=== PATIENT | male | born 1965 | race Two or more races ===

== ENCOUNTER 2023-09-10 23:48 | Emergency (ER) | payer OTHER ==
[~2023-09-10] VITALS: Ht 172.7 cm; Wt 93.8 kg
[2023-09-11 00:13] VITALS: BP 175/80; PULSE 72; RESP 16; TEMP 98.2; O2SAT 95
[2023-09-11] MEDS: TETANUS-DIPTH-ACEL PERTUSSIS 0.5ML SYR Tdap IM ONE (03:27)
[2023-09-11] MEDS ORDERED: DOXY100C4 PO (04:17)
== END 2023-09-11 04:29 | disposition home or self-care (01) ==
LOC: ER 23:48
DX: S90.32XA Contusion of left foot, initial encounter (principal); E11.9 Type 2 diabetes mellitus without complications; I10 Essential (primary) hypertension; Z23 Encounter for immunization; W22.8XXA Striking against or struck by other objects, initial encounter; Y93.89 Activity, other specified; Y92.69 Other specified industrial and construction area as the place of occurrence of the external cause; Y99.8 Other external cause status
CPT/HCPCS: 73630; 90471; 90715

== ENCOUNTER 2024-02-03 18:26 | Emergency (ER) | payer BC, OTHER ==
[~2024-02-03] VITALS: Ht 172.7 cm; Wt 95.0 kg
[~2024-02-03 18:26] MED LIST: DOXY100C4 PO
[2024-02-03 20:54] VITALS: BP 147/75; PULSE 91; RESP 18; O2SAT 94
[2024-02-03] MEDS: IBUPROFEN 800 MG TAB PO ONE (21:00)
[2024-02-03] MEDS: ACETAMINOPHEN 325 MG TAB PO ONE (21:01)
--- NOTE | 2024-02-03 21:52 | DVH ---
CHEST RADIOGRAPH Indication: cough Technique: Frontal and lateral view of the chest was obtained Comparison: None FINDINGS: Lines and Tubes: None Lungs: Clear Pleura: No effusion. No pneumothorax. Cardiomediastinal contours: Unremarkable Bones: Unremarkable IMPRESSION: 1. No evidence of acute disease.
[2024-02-03 21:58] VITALS: TEMP 100
[2024-02-03] MEDS ORDERED: PROM1SOL4 PO (22:09)
[2024-02-03] MEDS ORDERED: AZIT-43 PO (22:09)
--- NOTE | 2024-02-03 22:09 | ED.PDOC ---
SOB-HPI HPI Comments This is a 58-year-old male patient presents to the ED flu-like symptoms x2 days. Reports productive cough yellowish thick mucus, fevers, nausea, vomiting, and diarrhea also notes body aches. It is no recent travel or ill contacts. Chest pain difficulty breathing or shortness of breath. Chief Complaint: Flu like Time Seen by MD: 18:34 Reviewed notes: Nurses Notes, Medications, Allergies Information Source: Patient Mode of Arrival: Ambulatory Past Medical History PAST MEDICAL HISTORY: DM, HTN Surgical History: Denies all surgeries Family History Family History: Reviewed,noncontributory to illness Social History Smoker: Non-Smoker Alcohol: Denies ETOH Use Drugs: Denies Drug Use Constitutional: reports: chills, fatigue, fever; denies: diaphoresis, malaise, sweats, weakness, others EENTM: reports: nasal discharge, throat pain; denies: blurred vision, double vision, ear bleeding, ear discharge, ear drainage, ear pain, ear ringing, eye pain, eye redness, hearing loss, mouth pain, mouth swelling, nose bleeding, nose congestion, nose pain, photophobia, tearing, throat swelling, voice changes, others Respiratory: reports: cough Cardiovascular: denies: chest pain, dizzy spells, diaphoresis, Dyspnea on exertion, edema, irregular heart beat, left arm pain, lightheadedness, palpitations, PND, syncope, others Gastrointestinal: reports: diarrhea, nausea, vomiting; denies: abdomen distended, abdominal pain, blood streaked bowels, constipated, dysphagia, difficulty swallowing, hematemesis, melena, poor appetite, poor fluid intake, rectal bleeding, rectal pain, others Genitourinary: denies: burning, dysuria, flank pain, frequency, hematuria, incontinence, penile discharge, penile sore, pain, testicle pain, testicle swelling, urgency, others Neurological: denies: dizziness, fainting, headache, left sided numbness, left sided weakness, numbness, paresthesia, pre-existing deficit, right sided numbness, right sided weakness, seizure, speech problems, tingling, tremors, weakness, others Musculoskeletal: denies: back pain, gout, joint pain, joint swelling, muscle pain, muscle stiffness, neck pain, others Integumetry: denies: bruises, change in color, change in hair/nails, dryness, laceration, lesions, lumps, rash, wounds, others Allergic/Immunocompromised: denies: Difficulty Healing, Frequent Infections, Hives, Itching, others Hematologic/Lymphatic: denies: anemia, blood clots, easy bleeding, easy bruising, swollen glands, others Endocrine: denies: excessive hunger, excessive sweating, excessive thirst, excessive urination, flushing, intolerance to cold, intolerance to heat, unexplained weight gain, unexplained weight loss, others Psychiatric: denies: anxiety, bipolar disorder, depression, hopeless, panic disorder, schizophrenia, sleepless, suicidal, others Physical Exam General Appearance: No Apparent Distress, Normal HEENT: Pharyngeal Erythema Neck: Full Range of Motion, Non-Tender Respiratory: Lungs Clear, No Respiratory Distress, Normal Breath Sounds Cardiovascular: No Edema, No JVD, No Murmur, No Gallop, Normal Peripheral Pulses, Regular Rate/Rhythm Breast Exam: Deferred Gastrointestinal: No Organomegaly, Non Tender, No Pulsatile Mass, Normal Bowel Sounds, Soft Genitalia: Deferred Pelvic: Deferred Rectal: Deferred Extremities: Normal capillary refill, Normal inspection, Normal range of motion, Non-tender, No pedal edema Musculoskeletal : Apperance: Normal Neurologic: Alert, 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 Was a procedure done?: No Differential Dx Differential Diagnosis: Bronchitis, Pneumonia X-Ray, Labs, Meds, VS Vital Signs Date Time Temp Pulse Resp B/P (MAP) Pulse Ox O2 Delivery O2 Flow Rate FiO2 02/03/24 21:58 100.0 02/03/24 21:58 100.0 02/03/24 21:01 102.0 02/03/24 21:00 102.0 02/03/24 20:54 91 18 94 Room Air 02/03/24 20:54 102.0 91 18 147/75 (99) 94 102.0 02/03/24 18:53 101.4 90 20 145/85 (105) 96 Current Medications Medications (Trade) Dose Ordered Sig/Chelsea Route Start Time Stop Time Status Last Admin Acetaminophen (Tylenol Tablet) 650 mg ONCE ONCE PO 02/03/24 21:00 02/03/24 21:01 DC 02/03/24 21:01 Ibuprofen (Motrin Tablet) 800 mg ONCE ONCE PO 02/03/24 21:00 02/03/24 21:01 DC 02/03/24 21:00 X-Ray, Labs, Meds, VS Comment Chest x-ray shows no cardiopulmonary acute concerns. Grabbing hold azithromycin start trial of promethazine cough medicine. Advised to rest increase p.o. fluids with electrolytes follow up with your PCP in 2-3 days as necessary [id number] Tylenol or Motrin as needed for fever per labeled dosing instructions patient indicated understanding agrees with discharge plan of care. Time of 1ST Reevaluation: 22:06 Reevaluation 1ST: Improved Patient Education/Counseling: Diagnosis, Treatment, Prognosis, Need For Follow Up Family Education/Counseling: Diagnosis, Treatment, Prognosis, Need For Follow Up Departure 1 Departure Time of Disposition: 22:06 Impression: Primary Impression: Upper respiratory infection Qualified Codes: J06.9 - Acute upper respiratory infection, unspecified Disposition: HOME / SELF CARE / HOMELESS Condition: Stable e-Prescriptions Promethazine-Dm (Promethazine Dm 6.25-15 mg/5Ml) 1 Emmie Emmie 5 ML PO QID PRN for 3 Days, #60 ML Prov: WINTER MUNROE 02/03/24 Azithromycin (Azithromycin) 250 Mg Tab 250 MG PO DAILY MDD 500 for 5 Days, #6 TAB 0 Refills 2 TABLETS ORALLY ON DAY ONE, THEN 1 TABLET ORALLY DAILY FOR 4 DAYS Prov: WINTER MUNROE 02/03/24 Discharged With: Spouse Critical Care Note Critical Care Time?: No Stability Stability form required: No Heart Score Heart Score: Heart Score Response (Comments) Value History N/A 0 EKG N/A 0 Age 45-64 1 Risk Factors N/A 0 Troponin N/A 0 Total 1 WINTER MUNROE Feb 03, 2024 22:09
== END 2024-02-03 22:15 | disposition home or self-care (01) ==
LOC: ER 18:31
DX: J06.9 Acute upper respiratory infection, unspecified (principal); E11.9 Type 2 diabetes mellitus without complications; I10 Essential (primary) hypertension
CPT/HCPCS: 71046

== ENCOUNTER 2024-07-08 17:27 | Inpatient (IN) | payer BC ==
[~2024-07-08] VITALS: Ht 172.7 cm; Wt 97.5 kg
[~2024-07-08 17:27] MED LIST changes: +AZIT-43 PO
[2024-07-08 19:04] LABS: Basophils # (auto) 0.1 10 ^3/uL (0-0.2); Basophils % (auto) 0.9 % (0.0-2.0); Eosinophils # (auto) 0.2 10 ^3/uL (0-0.8); Eosinophils % (auto) 1.6 % (0.0-7.0); Hematocrit 40.5 % (41.0-53.0); Hemoglobin 14.1 g/dL (13.5-17.5); Lymphocytes # (auto) 4.3 10 ^3/uL (0.4-5.4); Lymphocytes % (auto) 44.4 % (10.0-50.0); Mean Corpuscular Hemoglobin 31.3 pg (28.0-32.0); Mean Corpuscular Hgb Conc. 34.8 g/dL (32.0-36.0); Mean Corpuscular Volume 90.2 fL (80.0-100.0); Monocytes # (auto) 0.8 10 ^3/uL (0-1.3); Neutrophils # (auto) 4.4 10 ^3/uL (1.6-8.6); Neutrophils % (auto) 45.1 % (37.0-80.0); Nucleated Red Blood Cells % 0.1 %; Platelet Count (auto) 250 10^3/uL (140-450); Red Blood Cells 4.49 10^6/uL (4.5-5.90); White Blood Cell 9.7 10^3/uL (4.4-10.8)
[2024-07-08 19:10] LABS: Chloride 106 mmol/L (98-107); Potassium 4.7 mmol/L (3.5-5.1); Sodium 139 mmol/L (136-145)
--- NOTE | 2024-07-08 19:10 | ED.PDOC ---
Musculoskeletal HPI Comments 59 year old male came to ER due to left foot pain. Patient has history of diabetes. [place] the [place] and he was unable to feel how hot the surface is because of his diabetes/ neuropathy. Noted redness, swelling and erythema at his left foot. 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/24 Doxycycline Hyclate (Doxycycline Hyclate) 100 Mg Cap, 100 MG PO BID for 5 Days, #10 CAP Prov:WINTER MUNROE POULTRY SERVICE TECHNICIAN 09/11/23 Information Source: Patient Mode of Arrival: Ambulatory Location: Left Extremity Location: Foot Timing: Days Severity: Moderate Able to Move Extremity: Yes Bear Weight: Limited Pain: Moderate Hand Dominance: Right Mechanism: Spontaneous Circumstances: Spontaneous Onset of Symptoms: Spontaneous Symptoms: Swelling, Erythema, Warmth Associated signs and symptoms: Other (left foot redness/ swelling) Past Medical History PAST MEDICAL HISTORY: DM, HTN Surgical History: Denies all surgeries Family History Family History: Reviewed,noncontributory to illness Social History Smoker: Non-Smoker Alcohol: Denies ETOH Use Drugs: Denies Drug Use Lives In: Home Constitutional: denies: chills, diaphoresis, fatigue, fever, malaise, sweats, weakness, others EENTM: denies: blurred vision, double vision, ear bleeding, ear discharge, ear drainage, ear pain, ear ringing, eye pain, eye redness, hearing loss, mouth pain, mouth swelling, nasal discharge, nose bleeding, nose congestion, nose pain, photophobia, tearing, throat pain, throat swelling, voice changes, others Respiratory: denies: cough, hemoptysis, orthopnea, SOB at rest, shortness of breath, SOB with excertion, stridor, wheezing, others Cardiovascular: denies: chest pain, dizzy spells, diaphoresis, Dyspnea on exertion, edema, irregular heart beat, left arm pain, lightheadedness, palpitations, PND, syncope, others Gastrointestinal: denies: abdomen distended, abdominal pain, blood streaked bowels, constipated, diarrhea, dysphagia, difficulty swallowing, hematemesis, melena, nausea, poor appetite, poor fluid intake, rectal bleeding, rectal pain, vomiting, others Genitourinary: denies: burning, dysuria, flank pain, frequency, hematuria, incontinence, penile discharge, penile sore, pain, testicle pain, testicle swelling, urgency, others Neurological: denies: dizziness, fainting, headache, left sided numbness, left sided weakness, numbness, paresthesia, pre-existing deficit, right sided numbness, right sided weakness, seizure, speech problems, tingling, tremors, weakness, others Musculoskeletal: reports: others (left foot redness); denies: back pain, gout, joint pain, joint swelling, muscle pain, muscle stiffness, neck pain Integumetry: denies: bruises, change in color, change in hair/nails, dryness, laceration, lesions, lumps, rash, wounds, others Allergic/Immunocompromised: denies: Difficulty Healing, Frequent Infections, Hives, Itching, others Hematologic/Lymphatic: denies: anemia, blood clots, easy bleeding, easy bruisi ng, swollen glands, others Endocrine: denies: excessive hunger, excessive sweating, excessive thirst, exce ssive urination, flushing, intolerance to cold, intolerance to heat, unexplained weight gain, unexplained weight loss, others Psychiatric: denies: anxiety, bipolar disorder, depression, hopeless, panic disorder, schizophrenia, sleepless, suicidal, others Physical Exam General Appearance: No Apparent Distress, Normal HEENT: Normal ENT Inspection, Pharynx Normal, TMs Normal Neck: Full Range of Motion, Non-Tender, Normal, Normal Inspection Respiratory: Chest Non-Tender, Lungs Clear, No Accessory Muscle Use, No Respi ratory Distress, Normal Breath Sounds Cardiovascular: No Edema, No JVD, No Murmur, No Gallop, Normal Peripheral Pulses, Regular Rate/Rhythm Breast Exam: Deferred Gastrointestinal: No Organomegaly, Non Tender, No Pulsatile Mass, Normal Bowel Sounds, Soft Genitalia: Deferred Pelvic: Deferred Rectal: Deferred Extremities: No calf tenderness, Normal capillary refill, Normal range of motion, Non-tender, No pedal edema, Swelling (left foot redness, swelling, erythema) Musculoskeletal : Apperance: Normal Neurologic: Alert, 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 Was a procedure done?: No Differential Diagnosis EXT Differential Diagnosis: Cellulitis, Other (diabetes) X-Ray, Labs, Meds, VS Vital Signs Date Time Temp Pulse Resp B/P (MAP) Pulse Ox O2 Delivery O2 Flow Rate FiO2 07/08/24 18:00 99.0 71 13 162/89 (113) 97 99.0 Lab Test 07/08/24 19:40 07/08/24 18:48 07/08/24 18:25 Range/Units Troponin I High Sensitivity 7 6 </=54 ng/L White Blood Count 9.7 4.4-10.8 10^3/uL Red Blood Count 4.49 L 4.5-5.90 10^6/uL Hemoglobin 14.1 13.5-17.5 g/dL Hematocrit 40.5 L 41.0-53.0 % Mean Corpuscular Volume 90.2 80.0-100.0 fL Mean Corpuscular Hemoglobin 31.3 28.0-32.0 pg Mean Corpuscular Hemoglobin Concent 34.8 32.0-36.0 g/dL Red Cell Distribution Width 14.0 11.8-14.3 % Platelet Count 250 140-450 10^3/uL Mean Platelet Volume 7.8 6.9-10.8 fL Neutrophils (%) (Auto) 45.1 37.0-80.0 % Lymphocytes (%) (Auto) 44.4 10.0-50.0 % Monocytes (%) (Auto) 8.0 0.0-12.0 % Eosinophils (%) (Auto) 1.6 0.0-7.0 % Basophils (%) (Auto) 0.9 0.0-2.0 % Neutrophils # (Auto) 4.4 1.6-8.6 10 ^3/uL Lymphocytes # (Auto) 4.3 0.4-5.4 10 ^3/uL Monocytes # (Auto) 0.8 0-1.3 10 ^3/uL Eosinophils # (Auto) 0.2 0-0.8 10 ^3/uL Basophils # (Auto) 0.1 0-0.2 10 ^3/uL Nucleated Red Blood Cells 0.1 % Sodium Level 139 136-145 mmol/L Potassium Level 4.7 3.5-5.1 mmol/L Chloride Level 106 98-107 mmol/L Carbon Dioxide Level 29 20-31 mmol/L Anion Gap 4 L 5-15 Blood Urea Nitrogen 22 9-23 mg/dL Creatinine 1.27 0.700-1.30 mg/dL Glomerular Filtration Rate Calc 65 >90 mL/min BUN/Creatinine Ratio 17.3 10.0-20.0 Serum Glucose 301 H 74-106 mg/dL Lactic Acid Level 1.1 0.4-2.0 mmol/L Calcium Level 9.5 8.7-10.4 mg/dL B-Type Natriuretic Peptide 142.32 0-100 pg/mL POC Glucose 301 H 70-106 mg/dl PROCEDURE(s): LFOOT - L FOOT 3 VIEW XRAY REASON: left foot ulcer on bottom of the foot ORDER NUMBER(s): [id number], ACCESSION NUMBER(s): [id number] CLINICAL INDICATION: left foot ulcer on bottom of the foot TECHNIQUE: radiographic views of the left foot were obtained. Comparison: XY L FOOT 3 VIEW XRAY on DOS: 09/11/23 FINDINGS/IMPRESSION: There is no evidence of acute fracture or dislocation. If osteomyelitis is of clinical concern recommend MRI. The visualized joint space is well maintained. The alignment is anatomical. There is no radiopaque foreign body. CHEST RADIOGRAPH Indication: weakness Technique: Single frontal view of the chest was obtained Comparison: 02/03/2024 FINDINGS: Lines and Tubes: None Lungs: No focal consolidation. Pleura: No effusion. No pneumothorax. Cardiomediastinal contours: Unremarkable Bones: No acute osseous abnormality. IMPRESSION: 1. No acute cardiopulmonary disease. 2. No significant change from 02/03/2024 Time of 1ST Reevaluation: 19:06 Reevaluation 1ST: Unchanged Patient Education/Counseling: Diagnosis, Treatment Family Education/Counseling: No Family Present Sepsis Sepsis Reasesment Focused Exam Orders: Laboratory Tests 07/08/24 18:48: Lactic Acid Level 1.1 Departure 1 Departure Time of Disposition: 20:49 (Patient presents with cellulitis of the left lower extremity. Given patient's high morbidity mortality arrest due to his risk factors we will admit patient for further workup and expert consultation. We will empirically cover patient with antibiotics and fluids. We will not give patient a full sepsis fluid boluses patient is clinically volume overloaded.) Impression: Primary Impression: Cellulitis of left foot Additional Impressions: Foot ulcer, left Qualified Codes: L97.521 - Non-pressure chronic ulcer of other part of left foot limited to breakdown of skin Diabetes Qualified Codes: E11.610 - Type 2 diabetes mellitus with diabetic neuropathic arthropathy Disposition: ADMITTED INPATIENT Admit to: Med Surg Condition: Guarded Critical Care Note Critical Care Time?: Yes Critical care comment: Concern for sepsis Authorized and Performed by: Bree Sesay MD Total critical care time: Approximately 34 minutes Due to a high probability of clinically significant, life threatening deterioration, the patient required my highest level of preparedness to intervene emergently and I personally spent this critical care time directly and personally managing the patient. This critical care time included obtaining a history; examining the patient; pulse oximetry; ordering and review of studies; arranging urgent treatment with development of a management plan; evaluation of patient's response to treatment; frequent reassessment; and, discussions with other providers. This critical care time was performed to assess and manage the high probability of imminent, life-threatening deterioration that could result in multi-organ failure. It was exclusive of separately billable procedures and treating other patients and teaching time. Please see my other sections and the rest of the note for further information on patient assessment and treatment. Stability Stability form required: No Heart Score Heart Score: Heart Score Response (Comments) Value History N/A 0 EKG N/A 0 Age N/A 0 Risk Factors N/A 0 Troponin N/A 0 Total 0 I personally scribed for BREE SESAY MD ([email or web address]) on 07/08/24 at 19:10. Electronically submitted by Luigi Sosa ([email or web address]). I personally scribed for BREE SESAY MD ([email or web address]) on 07/08/24 at 19:57. Electronically submitted by Luigi Sosa ([email or web address]). BREE SESAY MD July 08, 2024 19:10
[2024-07-08 19:11] LABS: Anion Gap 4 (5-15); Carbon Dioxide 29 mmol/L (20-31)
[2024-07-08 19:12] LABS: Calcium 9.5 mg/dL (8.7-10.4)
[2024-07-08 19:16] LABS: Glucose 301 mg/dL (74-106)
--- NOTE | 2024-07-08 19:16 | DVH ---
CLINICAL INDICATION: left foot ulcer on bottom of the foot TECHNIQUE: radiographic views of the left foot were obtained. Comparison: XY L FOOT 3 VIEW XRAY on DOS: 09/11/23 FINDINGS/IMPRESSION: There is no evidence of acute fracture or dislocation. If osteomyelitis is of clinical concern recommend MRI. The visualized joint space is well maintained. The alignment is anatomical. There is no radiopaque foreign body.
[2024-07-08 19:17] LABS: BUN/Creatinine Ratio 17.3 (10.0-20.0); Blood Urea Nitrogen 22 mg/dL (9-23)
[2024-07-08] MEDS: SODIUM CHLORIDE 0.9% 1,000 ML IV ONE (21:30)
[2024-07-08] MEDS: VANCOMYCIN 1GM/200ML PM 200 ML IV ONE (21:30)
[2024-07-08] MEDS ORDERED: ONDANSETRON HCL 4 MG/2 ML VIAL IV PRN (21:45)
[2024-07-08] MEDS ORDERED: DEXTROSE (50%) 50ML SYRG IV PRN (21:45)
[2024-07-08] MEDS ORDERED: HYDROcodone-ACET 5/325MG TAB PO PRN (21:45)
[2024-07-08] MEDS ORDERED: VANCOMYCIN PER PHARMACY 0 MG IV SCH (21:45)
[2024-07-08] MEDS ORDERED: DOCUSATE SOD 100 MG CAP PO PRN (21:45)
[2024-07-08] MEDS ORDERED: ACETAMINOPHEN 325 MG TAB PO PRN (21:45)
[2024-07-08] MEDS: SODIUM CHLORIDE 0.9% 1,000 ML IV SCH (22:21)
[2024-07-08] MEDS: ASCORBIC ACID 500 MG TAB PO SCH (22:21)
--- NOTE | 2024-07-08 22:52 | DVHHP2 ---
History of Present Illness Reason for Visit: Cellulitis of left foot History of Present Illness The patient is a 59-year-old male with past medical history of hypertension and diabetes mellitus who presented to [facility] ED with complaint of left foot pain. Patient reports he was walking barefooted at the beach last week and was unable to feel the hot surface due to diabetic neuropathy, sustained wound on the bottom of his left foot. Patient was seen and evaluated in the ED, laboratory data shows WBC 9.7, platelets 250, sodium 139, potassium 4.7, BUN 22, creatinine 1.27, troponin 7, glucose 301, BNP 142.32, blood pressure 136/79, heart rate 65, temperature 97.7 F, O2 saturation 97% on room air. Patient was started on IV antibiotic regimen vancomycin, please see medication orders section in the computer. On my assessment, patient denied chest pain, no headache, no shortness a breath, no diaphoresis, no nausea, no vomiting, no fever, no chills. Patient was admitted for further evaluation and medical management. Past Medical History DM, HTN, Neuropathy Past Surgical History Denies all surgeries Family History Reviewed, noncontributory to the management of this case. Past Social History The patient lives at home, denies smoking, alcohol or illicit drugs abuse. Review of Systems Constitutional: No: Fever, Chills, Sweats, Weakness, Malaise, Other Eyes: No: Pain, Vision change, Conjunctivae inflammation, Eyelid inflammation, Other, Redness ENT: No: Ear pain, Ear discharge, Nose pain, Nose discharge, Nose congestion, Mouth pain, Mouth swelling, Throat pain, Throat swelling, Other Respiratory: No: Cough, Dry, Shortness of breath, SOB with excertion, Wheezing, Hemoptysis, Pleuritic Pain, Sputum, Wheezing, Other Cardiovascular: No: Chest Pain, Palpitations, Orthopnea, Paroxysmal Noc. Dyspnea, Edema, Lt Headedness, Other Gastrointestinal: No: Nausea, Vomiting, Abdominal Pain, Diarrhea, Constipation, Melena, Hematochezia, Other Genitourinary: No Dysuria, No Frequency, No Incontinence, No Hematuria, No Retention, No Other Musculoskeletal: other (left foot redness); No: neck pain, shoulder pain, arm pain, back pain, hand pain, leg pain, foot pain Skin: Other (Left foot ulcer); No: Rash, Lesions, Jaundice, Bruising Neurological: No: Weakness, Numbness, Incoordination, Change in speech, Confusion, Seizures, Other Allergies: Coded Allergies: NO KNOWN ALLERGIES (Unverified , 09/11/23) Medications Current Medications Medications Dose Ordered Sig/Chelsea Route Start Time Stop Time Status Last Admin Dose Admin Amlodipine Besylate 5 mg DAILY PO 07/09/24 10:00 Hydralazine HCl 10 mg Q6HP PRN IV 07/08/24 21:45 Vancomycin HCl 0 ml @ 0 mls/hr UD IV 07/08/24 21:45 UNV Diagnostic Test (Pha) 1 strip IQ4HR 07/09/24 00:00 Insulin Human Regular IQ4HR SC 07/09/24 00:00 Dextrose 50 ml UD PRN IV 07/08/24 21:45 Sodium Chloride 1,000 ml @ 60 mls/hr [id number] IV 07/08/24 21:45 07/08/24 22:21 60 MLS/HR Acetaminophen/ Hydrocodone Bitart 1 tab Q4HP PRN PO 07/08/24 21:45 Ondansetron HCl 4 mg Q4HP PRN IV 07/08/24 21:45 Docusate Sodium 100 mg BIDPRN PRN PO 07/08/24 21:45 Zinc Sulfate 220 mg DAILY PO 07/09/24 10:00 Ascorbic Acid 500 mg BID PO 07/08/24 22:00 07/08/24 22:21 500 MG Acetaminophen 650 mg Q6HP PRN PO 07/08/24 21:45 Exam Vital Signs Vital Signs Date Time Temp Pulse Resp B/P (MAP) Pulse Ox O2 Delivery O2 Flow Rate FiO2 07/08/24 21:38 Room Air* 0 21 07/08/24 21:05 97.7 65 15 136/79 (98) 94 97.7 General Appearance: Alert, Oriented X3, Cooperative, No acute distress HEENT: Atraumatic, PERRLA, EOMI, Mucous membr. moist/pink Respiratory: Clear to auscultation, Normal air movement Cardiovascular: Regular rate, Normal S1, Normal S2, No murmurs Abdominal: Normal bowel sounds, Soft, No tenderness, No hepatospenomegaly, No masses Extremities: No clubbing, No cyanosis, No edema, Normal pulses, Other (Left foot swelling) Skin: No rashes, No significant lesion Neuro: Normal speech, Normal tone, Sensation intact, Cranial nerves 3-12 NL, Reflexes 2+ Psych/Mental Status: Mental status NL, Mood NL Labs/Xrays Labs Test 07/08/24 19:40 07/08/24 18:48 07/08/24 18:25 Range/Units Troponin I High Sensitivity 7 </=54 ng/L White Blood Count 9.7 4.4-10.8 10^3/uL Red Blood Count 4.49 L 4.5-5.90 10^6/uL Hemoglobin 14.1 13.5-17.5 g/dL Hematocrit 40.5 L 41.0-53.0 % Mean Corpuscular Volume 90.2 80.0-100.0 fL Mean Corpuscular Hemoglobin 31.3 28.0-32.0 pg Mean Corpuscular Hemoglobin Concent 34.8 32.0-36.0 g/dL Red Cell Distribution Width 14.0 11.8-14.3 % Platelet Count 250 140-450 10^3/uL Mean Platelet Volume 7.8 6.9-10.8 fL Neutrophils (%) (Auto) 45.1 37.0-80.0 % Lymphocytes (%) (Auto) 44.4 10.0-50.0 % Monocytes (%) (Auto) 8.0 0.0-12.0 % Eosinophils (%) (Auto) 1.6 0.0-7.0 % Basophils (%) (Auto) 0.9 0.0-2.0 % Neutrophils # (Auto) 4.4 1.6-8.6 10 ^3/uL Lymphocytes # (Auto) 4.3 0.4-5.4 10 ^3/uL Monocytes # (Auto) 0.8 0-1.3 10 ^3/uL Eosinophils # (Auto) 0.2 0-0.8 10 ^3/uL Basophils # (Auto) 0.1 0-0.2 10 ^3/uL Nucleated Red Blood Cells 0.1 % Sodium Level 139 136-145 mmol/L Potassium Level 4.7 3.5-5.1 mmol/L Chloride Level 106 98-107 mmol/L Carbon Dioxide Level 29 20-31 mmol/L Anion Gap 4 L 5-15 Blood Urea Nitrogen 22 9-23 mg/dL Creatinine 1.27 0.700-1.30 mg/dL Glomerular Filtration Rate Calc 65 >90 mL/min BUN/Creatinine Ratio 17.3 10.0-20.0 Serum Glucose 301 H 74-106 mg/dL Lactic Acid Level 1.1 0.4-2.0 mmol/L Calcium Level 9.5 8.7-10.4 mg/dL B-Type Natriuretic Peptide 142.32 0-100 pg/mL POC Glucose 301 H 70-106 mg/dl PATIENT: VLAD VILLARREAL ACCT: [id number] UNIT: [id number] : 1965 LOC: ER ROOM / BED: / AGE / SEX: 59 / M ADM STATUS: REG ER SERVICE [id number] ORDERING PHYSICIAN: BREE ESTRADA MD PROCEDURE(s): LFOOT - L FOOT 3 VIEW XRAY REASON: left foot ulcer on bottom of the foot ORDER NUMBER(s): [id number], ACCESSION NUMBER(s): [id number] CLINICAL INDICATION: left foot ulcer on bottom of the foot TECHNIQUE: radiographic views of the left foot were obtained. Comparison: XY L FOOT 3 VIEW XRAY on DOS: 09/11/23 FINDINGS/IMPRESSION: There is no evidence of acute fracture or dislocation. If osteomyelitis is of clinical concern recommend MRI. The visualized joint space is well maintained. The alignment is anatomical. There is no radiopaque foreign body. ORDERING PHYSICIAN: BREE ESTRADA MD PROCEDURE(s): CXRP - CHEST PORTABLE REASON: weakness ORDER NUMBER(s): [id number], ACCESSION NUMBER(s): [id number] CHEST RADIOGRAPH Indication: weakness Technique: Single frontal view of the chest was obtained Comparison: 02/03/2024 FINDINGS: Lines and Tubes: None Lungs: No focal consolidation. Pleura: No effusion. No pneumothorax. Cardiomediastinal contours: Unremarkable Bones: No acute osseous abnormality. IMPRESSION: 1. No acute cardiopulmonary disease. 2. No significant change from 02/03/2024 Assessment/Plan Assessment/Plan Cellulitis of left foot Foot ulcer, left Non-pressure chronic ulcer of other part of left foot limited to breakdown of skin Type 2 diabetes mellitus with diabetic neuropathic arthropathy Plan 1. Admit to med session 80 2. Breathing treatment 3. Pain control management 4. IV antibiotic management 5. Management of fluids and electrolytes 6. Consultation for hospitalist/wound care 7. Diagnostic test left foot x-ray 8. DVT prophylaxis-on aspirin 9. Repeat labs CBC, CMP in a.m. 10. Home medication reviewed and reconciled 11. Continue with current medical management 12. Treatment plan discussed with patient and RN. Patient verbalized understanding. Plan discussed with: Patient, Other (RN) My Orders Orders - UMER THOMPSON DNP Procedure Category Date Status Time Amlodipine Tablet PHA 07/09/24 In Process (Norvasc Tablet) 10:00 Hydralazine Injection PHA 07/08/24 In Process (Apresoline Inject 21:45 Vancomycin Per PHA 07/08/24 Pending Pharmacy 21:45 * Wound Consult CONS 07/08/24 Transmitted Consistent DIET 07/09/24 Transmitted Carb(Ccho)Diabetes Breakfast Glucose Blood PHA 07/09/24 In Process (Accu-Chek Comfort 00:00 Insulin R (Human) PHA 07/09/24 In Process (Insulin R) 00:00 Dextrose 50% Syringe PHA 07/08/24 In Process 21:45 Allergies LILIANA 07/08/24 In Process 21:43 Code Status CODE 07/08/24 Transmitted 21:43 Sodium Chloride 0.9% PHA 07/08/24 In Process 21:45 Oxygen Per Hour RT 07/08/24 Transmitted 21:43 Hydrocodone-Acet PHA 07/08/24 In Process /325mg Tab (Haigler 21:45 Ondansetron Hcl PHA 07/08/24 In Process (Zofran) 21:45 Docusate Sodium PHA 07/08/24 In Process Capsule (Colace 21:45 Zinc Sulfate PHA 07/09/24 In Process 10:00 Ascorbic Acid Tablet PHA 07/08/24 In Process (Vitamin C Tablet) 22:00 Complete Blood Count LAB 07/09/24 Verified 04:00 Comprehensive LAB 07/09/24 Verified Metabolic Panel 04:00 Condition: Serious LILIANA 07/08/24 In Process 21:43 Acetaminophen Tablet PHA 07/08/24 In Process (Tylenol Tablet) 21:45 Bedrest With Bathroom LILIANA 07/08/24 In Process Privileg 21:43 Sequential LILIANA 07/08/24 In Process Compression Device Admit ADMIT 07/08/24 Verified 22:50 Nitroglycerin PHA 07/08/24 Verified Sublingual (Ntrostat 23:00 Morphine Sulfate PHA 07/08/24 Verified Injection 23:00 Notify Of Changes LILIANA 07/08/24 Verified From Base 22:50 Emergency Dysrhythmia LILIANA 07/08/24 Verified Protocol 22:50 Oxygen By Nasal RT 07/08/24 Verified Cannula 22:50 Problem List: (1) Cellulitis of left foot (2) Foot ulcer, left (3) Non-pressure chronic ulcer of other part of left foot limited to breakdown of skin (4) Type 2 diabetes mellitus with diabetic neuropathic arthropathy Date of Service: July 08, 2024 Billing Provider: UMER THOMPSON DNP Common Visit Codes: 49597-[id number] INP/OBS CARE (HIGH) UMER THOMPSON DNP July 08, 2024 22:52
[2024-07-08 22:54] VITALS: PULSE 71; RESP 12; O2SAT 95
[2024-07-08] MEDS ORDERED: NITROGLYCERIN 0.4 MG SL TAB SL PRN (23:00)
[2024-07-08] MEDS ORDERED: MORPHINE SULFATE INJ 2 MG/ml SYRG IV PRN (23:00)
[2024-07-08] MEDS: ACCU-CHEK COMFORT CURVE STRIP VI SCH (23:34)
[2024-07-08 23:51] VITALS: BP 171/94; PULSE 70; RESP 18; TEMP 98; O2SAT 98
[2024-07-08 23:58] VITALS: BP 171/94; PULSE 70; RESP 18; TEMP 98; O2SAT 98
[2024-07-09] MEDS: InsuLIN REG 1unit/0.01ml Soln (100units/ml) SC SCH
[2024-07-09] MEDS: hydrALAZINE HCL 20 MG/ML VL IV PRN (00:07)
[2024-07-09] MEDS: MELATONIN 5 MG TAB PO SCH (01:09)
[2024-07-09 05:00] VITALS: BP 126/69; PULSE 65; RESP 18; TEMP 97.9; O2SAT 97
[2024-07-09 06:30] LABS: Basophils # (auto) 0.1 10 ^3/uL (0-0.2); Basophils % (auto) 0.7 % (0.0-2.0); Eosinophils # (auto) 0.2 10 ^3/uL (0-0.8); Eosinophils % (auto) 1.8 % (0.0-7.0); Hemoglobin 13.1 g/dL (13.5-17.5); Lymphocytes # (auto) 3.9 10 ^3/uL (0.4-5.4); Lymphocytes % (auto) 39.9 % (10.0-50.0); Mean Corpuscular Hemoglobin 30.9 pg (28.0-32.0); Mean Corpuscular Hgb Conc. 34.5 g/dL (32.0-36.0); Mean Corpuscular Volume 89.5 fL (80.0-100.0); Monocytes % (auto) 10.1 % (0.0-12.0); Neutrophils # (auto) 4.6 10 ^3/uL (1.6-8.6); Neutrophils % (auto) 47.5 % (37.0-80.0); Platelet Count (auto) 238 10^3/uL (140-450); Red Blood Cells 4.24 10^6/uL (4.5-5.90); Red Cell Distribution Width 13.9 % (11.8-14.3); White Blood Cell 9.7 10^3/uL (4.4-10.8)
[2024-07-09 06:47] LABS: Alanine Aminotransferase 11 U/L (7-40); Alkaline Phosphatase 69 U/L (46-116); Anion Gap 6 (5-15); BUN/Creatinine Ratio 18.8 (10.0-20.0); Blood Urea Nitrogen 18 mg/dL (9-23); Carbon Dioxide 26 mmol/L (20-31); Potassium 3.7 mmol/L (3.5-5.1); Sodium 141 mmol/L (136-145)
[2024-07-09 06:48] LABS: Aspartate Aminotransferase 13 U/L (13-40); Chloride 109 mmol/L (98-107); Glucose 141 mg/dL (74-106); Total Protein 5.9 g/dL (5.7-8.2)
[2024-07-09 06:49] LABS: Albumin 3.5 g/dL (3.2-4.8)
[2024-07-09 06:50] LABS: Bilirubin, Total 0.5 mg/dL (0.2-1.0)
[2024-07-09 08:30] VITALS: PULSE 65; RESP 16; O2SAT 97
[2024-07-09] MEDS: ZINC SULFATE 220mg CAP or TAB PO SCH (08:38)
[2024-07-09] MEDS: ASPirin 81 mg TAB PO SCH (08:38)
[2024-07-09] MEDS: amLODIPine BESYLATE 5 MG TAB PO SCH (08:39)
[2024-07-09 09:00] VITALS: BP 155/95; PULSE 65; RESP 16; TEMP 97.9; O2SAT 97
[2024-07-09] MEDS: FUROSEMIDE 20 MG/2 ML VIAL IV ONE (12:15)
[2024-07-09 13:00] VITALS: BP 136/66; PULSE 61; RESP 16; TEMP 98.5; O2SAT 96
--- NOTE | 2024-07-09 13:08 | DVHPNRES ---
Progress Note Date Seen: Jul 09, 2024 Resident Creating Document: BRIONNA DE LA CRUZ RESIDENT Has the PT tested + for MRSA If YES, has PT been informed?: No Medical Necessity Reason Pt with a Central, PICC or Fol: No Medical Necessity Reason History of Present Illness The patient is a 59-year-old male with past medical history of hypertension and diabetes mellitus who presented to [facility] ED with complaint of left foot pain. Patient reports he was walking [place]footed [place] the [place] and was unable to feel the hot surface due to diabetic neuropathy, sustained wound on the bottom of his left foot. Patient was seen and evaluated in the ED, laboratory data shows WBC 9.7, platelets 250, sodium 139, potassium 4.7, BUN 22, creatinine 1.27, troponin 7, glucose 301, BNP 142.32, blood pressure 136/79, heart rate 65, temperature 97.7 F, O2 saturation 97% on room air. Patient was started on IV antibiotic regimen vancomycin, please see medication orders section in the computer. On my assessment, patient denied chest pain, no headache, no shortness a breath, no diaphoresis, no nausea, no vomiting, no fever, no chills. Patient was admitted for further evaluation and medical management. Past Medical History: DM, HTN, Neuropathy Past Surgical History: Denies all surgeries Family History: Reviewed, noncontributory to the management of this case. Past Social History :The patient lives at home, denies smoking, alcohol or illicit drugs abuse. 07/09 Patient is a 59-year-old male with a known past medical history of diabetes and hypertension but noncompliant presented to the ED because of left foot pain. According to the patient he has been diagnosed of diabetes some time back has been on metformin and glipizide and also lisinopril for hypertension. However, patient has not be compliant with these medications. For unknown reasons. According to the patient, for about a week now he was walking on the beach without shoes and did not feel any cuts or lesion under his foot. He has neuropathy and he did not know. He just noticed ulcer at the bottom of his left foot and presented to the ED for evaluation. Patient denied any fever, chills, tenderness. Initial lab work in the ED revealed WBC 9.7, platelet 250, Na: 137. Left foot x-ray revealed is no evidence of acute fracture or dislocation. will get an MRI Subjective Review of Systems Constitutional: Denies fever no chills no feeling of malaise HEENT: Denies headache, ear pain, ear discharges, conjunctivitis, nasal discharge throat pain Cardiovascular: Denies chest pain, palpitation, orthopnea, PND, or pedal edema Respiratory: Denies shortness of breath, cough cough, sputum production, hemoptysis, GI: Denies abdominal pain, nausea, vomiting, diarrhea, hematemesis, hematochezia, : Denies frequency, urgency, hematuria, Endocrine: Denies unintentional weight gain or weight loss, feeling of hot flashes, Russell: Denies easy bruising, bleeding disorders, epistaxis Musculoskeletal: Denies joint pains, muscle aches Psych: No evidence of depression, jatinder, suicidal ideation Objective vital signs Vital Sign Date Time Temp Pulse Resp B/P (MAP) Pulse Ox O2 Delivery O2 Flow Rate FiO2 07/09/24 12:15 138/82 07/09/24 09:00 97.9 65 16 97 97.9 07/09/24 08:30 Room Air* 0 21 Total Intake and Output 07/08/24 07/08/24 07/09/24 15:00 23:00 07:00 Intake Total 1200 ml 235 ml Balance 1200 ml 235 ml medications Current Medications Medications Dose Ordered Sig/Chelsea Route Start Time Stop Time Status Last Admin Dose Admin Amlodipine Besylate 5 mg DAILY PO 07/09/24 10:00 07/09/24 08:39 5 MG Hydralazine HCl 10 mg Q6HP PRN IV 07/08/24 21:45 07/09/24 00:07 10 MG Vancomycin HCl 0 ml @ 0 mls/hr UD IV 07/08/24 21:45 Diagnostic Test (Pha) 1 strip IQ4HR 07/09/24 00:00 07/09/24 12:03 1 STRIP Insulin Human Regular IQ4HR SC 07/09/24 00:00 07/09/24 12:14 6 UNITS Dextrose 50 ml UD PRN IV 07/08/24 21:45 Sodium Chloride 1,000 ml @ 60 mls/hr [id number] IV 07/08/24 21:45 07/08/24 22:21 60 MLS/HR Acetaminophen/ Hydrocodone Bitart 1 tab Q4HP PRN PO 07/08/24 21:45 Ondansetron HCl 4 mg Q4HP PRN IV 07/08/24 21:45 Docusate Sodium 100 mg BIDPRN PRN PO 07/08/24 21:45 Zinc Sulfate 220 mg DAILY PO 07/09/24 10:00 07/09/24 08:38 220 MG Ascorbic Acid 500 mg BID PO 07/08/24 22:00 07/09/24 08:38 500 MG Acetaminophen 650 mg Q6HP PRN PO 07/08/24 21:45 Nitroglycerin 0.4 mg Q5MINP PRN SL 07/08/24 23:00 Morphine Sulfate 2 mg Q30M PRN IV 07/08/24 23:00 Melatonin 5 mg HS PO 07/09/24 00:50 07/09/24 01:09 5 MG Aspirin 81 mg DAILY PO 07/09/24 10:00 07/09/24 08:38 81 MG Vancomycin HCl 300 ml @ 200 mls/hr Q24H IV 07/09/24 15:00 Examination General Appearance: Alert, Oriented X3, Cooperative, No acute distress HEENT: Atraumatic, PERRLA, EOMI, Mucous membrane moist/pink Respiratory: Clear to auscultation, Normal air movement Cardiovascular: Regular rate, Normal S1, Normal S2, No murmurs, no chest wall tenderness Abdominal: NO distention, no tenderness, bowel sounds present, no scars noted Extremities: No clubbing, No cyanosis, No edema, Normal pulses, No tenderness/swelling Skin: No rashes, left foot plantar ulcer; unstageable with black eschar Neuro: Normal gait, Normal speech, Strength at 5/5 X4 ext, Normal tone, Sensation intact, Cranial nerves 3-12 NL, Reflexes 2+ Psych/Mental Status: Mental status NL, Mood NL laboratory and microbiology Laboratory Tests 07/09/24 05:46 Test 07/09/24 05:46 Range/Units Serum Glucose 141 #H 74-106 mg/dL Labs and/or images reviewed: Labs reviewed by me, Image(s) reviewed by me Problem List/Assessment/Plan Problem List/Assessment/Plan Assessment Diabetic foot ulcer, rule out osteomyelitis Diabetes mellitus type 2 Type 2 diabetes mellitus with diabetic neuropathic arthropathy Hypertension Obesity grade 1, BMI 32.4 plan Vancomycin and Ceftriaxone Get MRI to rule out osteomyelitis Continue insulin and sliding scale Continue home medication of lisinopril; not adhering to medication Check A1c Lipid panel Consulted Podiatry Consulted wound care Counseled the patient on adherence to medical treatment Counseled the patient importance of adopting healthy lifestyle with diet and exercise in order to lose weight DVT prophylaxis; Lovenox Diet: Diabetic Goal of care discussed for 20 minutes with the patient and his : Full code Case and plan discussed with Dr. Borrero Plan discussed with: Patient, Spouse, Other (Nurse) My Orders My Orders Orders - BRIONNA DE LA CRUZ Procedure Category Date Status Time Echo 2d Mode Cardiac US 07/09/24 Logged DOP 11:35 Dietary Evaluation Review Recommendations by RD: Dietary education by RD, Protein Supplementation Comments: 1) Renal restriction is not necessary d/t patient's labs WNL. Change to 60g CCHO 2g Na diet. 1) Initiate Ronnell @ 1 pk bid 2) Initiate MVI @ 1 tb qd 3) Collect HbA1c d/t elevated POC Glucose - 298 mg/dL 4) Refer to outpatient RD/CDCES for diabetes education and weight management 5) Continue to monitor I&O, labs, and skin integrity Expected Outcomes/Goals: 1) appetite and labs to improve 2) wound to improve 3) f/u in 3-5 days Addendum Addendum Addendum I was physically present for the caballero portions of the service provided to patient by THE RESIDENT. I have reviewed the documentation, discussed the case with resident and agree with the resident's documentation except as noted. Also the patient's clinical case was discussed with the patient's nurse. This medical document was created using an electronic medical record system with computerized dictation system. Although this document has been carefully reviewed, there might still be some phonetic and typographical errors. These areas are purely typographical due to imperfections of the software programs, and do not reflect any compromise in the patient's medical care. Late signature. Date of Service: Jul 09, 2024 Billing Provider: JACOBO BORRERO MD Common Visit Codes: [id number] INP/OBS CARE(HIGH) Secondary Visit Codes: [id number] CARE PLAN 30 MINUTES (20 minutes) BRIONNA DE LA CRUZ Jul 09, 2024 13:08 JACOBO BORRERO MD Jul 10, 2024 05:53
[2024-07-09 13:17] LABS: Triglycerides 136 mg/dL (< 150)
[2024-07-09 13:21] LABS: Cholesterol 217 mg/dL (< 200); HDL Cholesterol 34 mg/dL (40-59); LDL Cholesterol 168 mg/dL (< 100)
[2024-07-09] MEDS: VANCOMYCIN 1.5GM/300ML 300 ML IV SCH (15:45)
--- NOTE | 2024-07-09 16:27 | DVH ---
CLINICAL HISTORY: 59 years old, Male; RULE OUT OSTEOMYELITIS. Ulcer of the left foot. TECHNIQUE: Multi sequence multi planar MRI images of the left foot were obtained without IV contrast . COMPARISON: Radiographs dated 07/08/2024. FINDINGS: There is a wound at the plantar aspect of the forefoot near the level of the 2nd MTP joint . There is adjacent subcutaneous edema, possible cellulitis in the appropriate clinical setting. No o rganized fluid collection identified to suggest abscess. No evidence for osteomyelitis. Is also Moder ate subcutaneous edema along the dorsal aspect of the foot, which is nonspecific, but may be seen wit h cellulitis in the appropriate clinical setting. Visualized tendons appear intact. Mild tenosynovit is of the flexor hallucis longus tendon along its proximal plantar course. Visualized musculature fito ears unremarkable. IMPRESSION: 1. Wound at the plantar aspect of the forefoot near the 2nd MTP joint. No organized fluid collection identified to suggest abscess. No evidence for osteomyelitis. 2. Additional findings as detailed above.
[2024-07-09 17:00] VITALS: BP 149/87; PULSE 65; RESP 17; TEMP 98.3; O2SAT 98
[2024-07-09 21:00] VITALS: BP_SYST 111; BP_SYST 129; BP_DIAS 65; BP_DIAS 74; PULSE 61; PULSE 68; RESP 16; RESP 18; TEMP 97.1; TEMP 98; O2SAT 100; O2SAT 95
[2024-07-09] MEDS: INSULIN LANTUS (GLARGINE) 1 /0.01ml (100units/ml) SC SCH (22:40)
[2024-07-10] VITALS (7 sets, daily range): BP systolic 113–164; BP diastolic 60–93; PULSE 57–63; RESP 17–18; TEMP 96.6–98.3; O2SAT 94–98
[2024-07-10 08:01] LABS: Basophils # (auto) 0.1 10 ^3/uL (0-0.2); Basophils % (auto) 0.6 % (0.0-2.0); Eosinophils # (auto) 0.2 10 ^3/uL (0-0.8); Eosinophils % (auto) 1.8 % (0.0-7.0); Hematocrit 38.7 % (41.0-53.0); Hemoglobin 13.4 g/dL (13.5-17.5); Lymphocytes % (auto) 45.1 % (10.0-50.0); Mean Corpuscular Hemoglobin 31.2 pg (28.0-32.0); Mean Corpuscular Hgb Conc. 34.7 g/dL (32.0-36.0); Mean Corpuscular Volume 89.8 fL (80.0-100.0); Monocytes % (auto) 8.8 % (0.0-12.0); Neutrophils # (auto) 4.8 10 ^3/uL (1.6-8.6); Neutrophils % (auto) 43.7 % (37.0-80.0); Platelet Count (auto) 250 10^3/uL (140-450); Red Blood Cells 4.31 10^6/uL (4.5-5.90); Red Cell Distribution Width 14.2 % (11.8-14.3); White Blood Cell 11.1 10^3/uL (4.4-10.8)
--- NOTE | 2024-07-10 08:20 | DVHSR ---
APPROVED REPORT EXAM: Two-dimensional and M-mode echocardiogram with Doppler and color Doppler. Blood Pressure: 155/95 mmHg INDICATION Structural function of the heart RISK FACTORS Obesity: Height: 5'8", Weight: 213 DIMENSIONS LVDd4.9 (3.8-5.7cm)LA (2D)3.9 (1.9-4.0cm)Aortic Root3.5 (2.0-3.7cm) LVDs3.4 (2.5-4.0cm)LA (MM) (1.9-4.0cm)Aortic Cusp Exc1.8 (1.5-2.0cm) EF (%) 55.0 (55-70%)Rt. Atrium4.0 (1.9-4.0cm)Asc. Aorta cm IVSd0.9 (0.7-1.1cm)RV (D) (1.8-2.4cm) PWd1.1 (0.7-1.1cm) Mitral Valve MitralMitral Stenosis E wave0.73m/sMV Mean GR.mmHg A wave0.88m/sMV Peak GR.mmHg E/A ratio0.82D MVAcm2 DECEL [id number] 1/2 Timems Aortic Valve Aortic ValveAortic Stenosis V10.90m/Cindy Mean GR.5mmHg V21.51m/Cindy Peak GR.9mmHg LVOT Diameter2.2 (1.8-2.4cm)Doppler AVA2.26cm2 Pulmonic Valve V20.93m/s Other Information Technically limited study due to body habitus. Conclusion lvef 55% by visual estimate mild tte LVH RV enlarged biatrial enlargement no severe valve abnormalities noted limtited quality study
[2024-07-10] MEDS: AMOXICILLIN/CLAVUL 875 MG TAB PO ONE (14:36)
--- NOTE | 2024-07-10 15:14 | DVHINCON2 ---
Date Seen: Jul 10, 2024 Reason for Consultation Left foot wound History of Present Illness The patient is a 59-year-old male with past medical history of hypertension and diabetes mellitus who presented to [facility] ED with complaint of left foot pain. Patient reports he was walking [place]footed at the beach last [place] and was unable to feel the hot surface due to diabetic neuropathy, sustained wound on the bottom of his left foot. Patient was seen and evaluated in the ED, laboratory data shows WBC 9.7, platelets 250, sodium 139, potassium 4.7, BUN 22, creatinine 1.27, troponin 7, glucose 301, BNP 142.32, blood pressure 136/79, heart rate 65, temperature 97.7 F, O2 saturation 97% on room air. Patient was started on IV antibiotic regimen vancomycin, please see medication orders section in the computer. On my assessment, patient denied chest pain, no headache, no shortness a breath, no diaphoresis, no nausea, no vomiting, no fever, no chills. Patient was admitted for further evaluation and medical management. Past Medical History See H&P Past Surgical History See H&P Family History: Diabetes mellitus G8 MOTHER FH: kidney failure G8 FATHER Allergies: Coded Allergies: NO KNOWN ALLERGIES (Unverified , 09/11/23) Home Meds Active Scripts Azithromycin (Azithromycin) 250 Mg Tab, 250 MG PO DAILY MDD 500 for 5 Days, #6 TAB 0 Refills 2 TABLETS ORALLY ON DAY ONE, THEN 1 TABLET ORALLY DAILY FOR 4 DAYS Prov:WINTER MUNROEP 02/03/24 Doxycycline Hyclate (Doxycycline Hyclate) 100 Mg Cap, 100 MG PO BID for 5 Days, #10 CAP Prov:WINTER MUNROE [facility] 09/11/23 Current Medications Current Medications Medications (Trade) Dose Ordered Sig/Chelsea Route PRN Reason Start Time Stop Time Status Last Admin Insulin Glargine (Lantus) 14 units HS SC 07/09/24 22:00 07/10/24 11:12 DC 07/09/24 22:40 Insulin Glargine (Lantus) 15 units HS SC 07/10/24 22:00 Insulin Human Lispro (HumaLOG) 5 units AC SC 07/10/24 17:00 Insulin Human Lispro (HumaLOG) AC SC 07/10/24 17:00 Amoxicillin/ Clavulanate Potassium (Augmentin Tablet) 875 mg Q12HR PO 07/10/24 22:00 Diagnostic Test (Pha) (Accu-Chek Comfort Curve T) 1 strip AC 07/10/24 17:00 Vital Signs Vital Signs Date Time Temp Pulse Resp B/P (MAP) Pulse Ox O2 Delivery O2 Flow Rate FiO2 07/10/24 13:00 96.6 57 18 142/83 (102) 96 96.6 07/10/24 08:00 Room Air* 0 21 Physical Exam Dermatological: Skin is dry with mild erythema and some maceration around the wound site No gross deformities noted Mild non-pitting edema present bilaterally Left plantar foot with eschar Vascular: Dorsalis pedis and posterior tibial pulses are 1+ bilaterally Capillary refill is under 2 seconds Skin temperature is warm bilaterally Neurologic: Protective sensation is absent on the plantar forefoot bilaterally Monofilament testing reveals decreased sensation in multiple plantar sites Musculoskeletal: Range of motion at the ankle and MTP joints is within normal limits. Strength is 5/5 in all tested muscle groups. Gait is antalgic due to offloading of the affected limb. Labs/Diagnostic Data Labs Test 07/10/24 11:19 07/10/24 07:25 07/09/24 05:46 07/08/24 19:40 Range/Units POC Glucose 147 H 70-106 mg/dl White Blood Count 11.1 H 4.4-10.8 10^3/uL Red Blood Count 4.31 L 4.5-5.90 10^6/uL Hemoglobin 13.4 L 13.5-17.5 g/dL Hematocrit 38.7 L 41.0-53.0 % Mean Corpuscular Volume 89.8 80.0-100.0 fL Mean Corpuscular Hemoglobin 31.2 28.0-32.0 pg Mean Corpuscular Hemoglobin Concent 34.7 32.0-36.0 g/dL Red Cell Distribution Width 14.2 11.8-14.3 % Platelet Count 250 140-450 10^3/uL Mean Platelet Volume 7.7 6.9-10.8 fL Neutrophils (%) (Auto) 43.7 37.0-80.0 % Lymphocytes (%) (Auto) 45.1 10.0-50.0 % Monocytes (%) (Auto) 8.8 0.0-12.0 % Eosinophils (%) (Auto) 1.8 0.0-7.0 % Basophils (%) (Auto) 0.6 0.0-2.0 % Neutrophils # (Auto) 4.8 1.6-8.6 10 ^3/uL Lymphocytes # (Auto) 5.0 0.4-5.4 10 ^3/uL Monocytes # (Auto) 1.0 0-1.3 10 ^3/uL Eosinophils # (Auto) 0.2 0-0.8 10 ^3/uL Basophils # (Auto) 0.1 0-0.2 10 ^3/uL Nucleated Red Blood Cells 0.0 % Creatinine 1.00 0.700-1.30 mg/dL Glomerular Filtration Rate Calc 86 >90 mL/min Sodium Level 141 136-145 mmol/L Potassium Level 3.7 3.5-5.1 mmol/L Chloride Level 109 H 98-107 mmol/L Carbon Dioxide Level 26 20-31 mmol/L Anion Gap 6 5-15 Blood Urea Nitrogen 18 9-23 mg/dL BUN/Creatinine Ratio 18.8 10.0-20.0 Serum Glucose 141 #H 74-106 mg/dL Hemoglobin A1c 13.8 H <5.7 % A1C Calcium Level 9.0 8.7-10.4 mg/dL Total Bilirubin 0.5 0.2-1.0 mg/dL Aspartate Amino Transferase (AST) 13 13-40 U/L Alanine Aminotransferase (ALT) 11 7-40 U/L Alkaline Phosphatase 69 46-116 U/L Total Protein 5.9 5.7-8.2 g/dL Albumin 3.5 3.2-4.8 g/dL Triglycerides Level 136 < 150 mg/dL Cholesterol Level 217 H < 200 mg/dL LDL Cholesterol 168 H < 100 mg/dL HDL Cholesterol 34 L 40-59 mg/dL Troponin I High Sensitivity 7 </=54 ng/L Test 07/08/24 18:48 Range/Units Lactic Acid Level 1.1 0.4-2.0 mmol/L B-Type Natriuretic Peptide 142.32 0-100 pg/mL Microbiology Date/Time Source Procedure Growth Status 07/08/24 18:48 Blood Blood Culture - Preliminary NO GROWTH AFTER 24 HOURS OF INCUBATION. Resulted Problems(with codes): (1) Contusion of left foot, initial encounter (2) Upper respiratory infection (3) Diabetes (4) Foot ulcer, left (5) Cellulitis of left foot (6) Non-pressure chronic ulcer of other part of left foot limited to breakdown of skin (7) Type 2 diabetes mellitus with diabetic neuropathic arthropathy Plan/Recommendation ASSESSMENT: Patient is a 59 year old seen on the floor for a worsening ulcer PLAN: - The patients chart was reviewed, clinical findings were discussed with the patient, the etiologies of the conditions were discussed in detail, and a treatment plan was agreed to at this time, with both oral and written instructions provided. - reviewed advanced imaging - discussed that the wound appears to be superficial with no deeper abscess or osteomyelitis - wound appears to be stable at this point - recommend dressing with the Iodosorb gauze Kerlix Matt - use a postop shoe to ambulate - follow up with me on Wednesday for continued wound care All questions were answered and concerns addressed to the patient's satisfaction. The patient was given the phone number to the clinic and was told how to make contact with the clinic should any concerns or questions arise. Patient understands that if any questions or concerns arise prior to the next appointment, we should be contacted immediately. FOLLOW-UP: Continue to follow while inpatient Plan discussed with: Patient Date of Service: Jul 10, 2024 Billing Provider: KIMBERLY SCHUMACHER DPM Common Visit Codes: CONSULT ONLY Consultation Codes: [id number] CONSULT <80MIN KIMBERLY SCHUMACHER DPM Jul 10, 2024 15:14
[2024-07-10] MEDS: INSULIN LISPRO (HUMAN) 100 UNITS/ML ML SC SCH ×2 (17:18→17:20)
[2024-07-10] MEDS: ACCU-CHEK COMFORT CURVE STRIP VI SCH (17:20)
--- NOTE | 2024-07-10 18:48 | DVHPNRES ---
Progress Note Date Seen: Jul 10, 2024 Resident Creating Document: FLAVIO ELIZABETH KATHARINE Has the PT tested + for MRSA If YES, has PT been informed?: No Medical Necessity Reason Pt with a Central, PICC or Fol: No Subjective Review of Systems Patient seen and examined at bedside. Patient is feeling better since admission. Patient reports: No new complaints, Feels better Changes from previous H/P or p: Changes Objective vital signs Vital Sign Date Time Temp Pulse Resp B/P (MAP) Pulse Ox O2 Delivery O2 Flow Rate FiO2 07/10/24 17:00 98.3 62 17 164/93 (116) 98 98.3 07/10/24 08:00 Room Air* 0 21 Total Intake and Output 07/09/24 07/09/24 07/10/24 15:00 23:00 07:00 Intake Total 600 ml 400 ml Balance 600 ml 400 ml medications Current Medications Medications Dose Ordered Sig/Chelsea Route Start Time Stop Time Status Last Admin Dose Admin Amlodipine Besylate 5 mg DAILY PO 07/09/24 10:00 07/10/24 08:20 5 MG Dextrose 50 ml UD PRN IV 07/08/24 21:45 Sodium Chloride 1,000 ml @ 60 mls/hr [id number] IV 07/08/24 21:45 07/10/24 08:24 60 MLS/HR Acetaminophen/ Hydrocodone Bitart 1 tab Q4HP PRN PO 07/08/24 21:45 Ondansetron HCl 4 mg Q4HP PRN IV 07/08/24 21:45 Docusate Sodium 100 mg BIDPRN PRN PO 07/08/24 21:45 Zinc Sulfate 220 mg DAILY PO 07/09/24 10:00 07/10/24 08:20 220 MG Ascorbic Acid 500 mg BID PO 07/08/24 22:00 07/10/24 08:20 500 MG Acetaminophen 650 mg Q6HP PRN PO 07/08/24 21:45 Nitroglycerin 0.4 mg Q5MINP PRN SL 07/08/24 23:00 Morphine Sulfate 2 mg Q30M PRN IV 07/08/24 23:00 Melatonin 5 mg HS PO 07/09/24 00:50 07/09/24 22:32 5 MG Aspirin 81 mg DAILY PO 07/09/24 10:00 07/10/24 08:19 81 MG Insulin Glargine 15 units HS SC 07/10/24 22:00 Insulin Human Lispro 5 units AC SC 07/10/24 17:00 07/10/24 17:18 5 UNITS Insulin Human Lispro AC SC 07/10/24 17:00 07/10/24 17:20 2 UNITS Amoxicillin/ Clavulanate Potassium 875 mg Q12HR PO 07/10/24 22:00 Diagnostic Test (Pha) 1 strip AC 07/10/24 17:00 07/10/24 17:20 1 STRIP Examination General Appearance: Alert, Oriented X3, Cooperative, No acute distress HEENT: Atraumatic, PERRLA, EOMI, Mucous membrane moist/pink Respiratory: Clear to auscultation, Normal air movement Cardiovascular: Regular rate, Normal S1, Normal S2, No murmurs, no chest wall tenderness Abdominal: Normal bowel sounds, Soft, No tenderness, No hepatospenomegaly, No masses Extremities: No clubbing, No cyanosis, No edema, Normal pulses, No tenderness/swelling Skin: a 2 * 2 cm ulcer at the service of the right foot Neuro: Normal gait, Normal speech, Strength at 5/5 X4 ext, Normal tone, Sensation intact, Cranial nerves 3-12 NL, Reflexes 2+ Psych/Mental Status: Mental status NL, Mood NL laboratory and microbiology Laboratory Tests 07/10/24 07:25 07/09/24 05:46 Test 07/09/24 05:46 Range/Units Serum Glucose 141 #H 74-106 mg/dL Microbiology Date/Time Source Procedure Growth Status 07/08/24 18:48 Blood Blood Culture - Preliminary NO GROWTH AFTER 24 HOURS OF INCUBATION. Resulted Labs and/or images reviewed: Labs reviewed by me, Image(s) reviewed by me Problem List/Assessment/Plan Problem List/Assessment/Plan Diabetic foot ulcer Ruled out osteomyelitis/abscess Diabetes mellitus type 2 Type 2 diabetes mellitus with diabetic neuropathic arthropathy Hypertension Obesity grade 1, BMI 32.4 plan Augmentin Continue insulin and sliding scale Continue home medication of lisinopril; not adhering to medication Check A1c Lipid panel Consulted wound care Counseled the patient on adherence to medical treatment Counseled the patient importance of adopting healthy lifestyle with diet and exercise in order to lose weight Podiatry consulted, recommended medical management DVT prophylaxis; Lovenox Diet: Diabetic Goal of care discussed for 20 minutes with the patient and his : Full code Case and plan discussed with Dr. Foote Plan discussed with: Patient, Other (RN) My Orders My Orders Orders - FLAVIO ELIZABETH Procedure Category Date Status Time Amoxicillin/Clavulanate PHA 07/10/24 In Process Tablet (Augmenti 22:00 Podiatry Consult CONS 07/10/24 Transmitted 14:03 * Wheel Borer CONS 07/10/24 Transmitted Consult Complete Blood Count LAB 07/11/24 Verified 04:00 Comprehensive LAB 07/11/24 Verified Metabolic Panel 04:00 Dietary Evaluation Review Recommendations by RD: Dietary education by RD, Protein Supplementation Comments: 1) Renal restriction is not necessary d/t patient's labs WNL. Change to 60g CCHO 2g Na diet. 1) Initiate Ronnell @ 1 pk bid 2) Initiate MVI @ 1 tb qd 3) Collect HbA1c d/t elevated POC Glucose - 298 mg/dL 4) Refer to outpatient RD/CDCES for diabetes education and weight management 5) Continue to monitor I&O, labs, and skin integrity Expected Outcomes/Goals: 1) appetite and labs to improve 2) wound to improve 3) f/u in 3-5 days Date of Service: Jul 10, 2024 Billing Provider: EMMANUEL FOTOE MD Common Visit Codes: [id number] INP/OBS CARE(HIGH) FLAVIO ELIZABETH RESDIENT Jul 10, 2024 18:48 EMMANUEL FOOTE MD Jul 11, 2024 09:23
[2024-07-10] MEDS: AMOXICILLIN/CLAVUL 875 MG TAB PO SCH (21:05)
[2024-07-10] MEDS: INSULIN LANTUS (GLARGINE) 1 /0.01ml (100units/ml) SC SCH (21:10)
[2024-07-11] VITALS (7 sets, daily range): BP systolic 113–154; BP diastolic 56–85; PULSE 59–62; RESP 16–18; TEMP 35.8; O2SAT 97–99
[2024-07-11 06:57] LABS: Basophils # (auto) 0.1 10 ^3/uL (0-0.2); Basophils % (auto) 1.1 % (0.0-2.0); Eosinophils # (auto) 0.3 10 ^3/uL (0-0.8); Eosinophils % (auto) 2.6 % (0.0-7.0); Hemoglobin 13.6 g/dL (13.5-17.5); Lymphocytes # (auto) 4.4 10 ^3/uL (0.4-5.4); Lymphocytes % (auto) 41.3 % (10.0-50.0); Mean Corpuscular Hemoglobin 31.4 pg (28.0-32.0); Mean Corpuscular Hgb Conc. 34.8 g/dL (32.0-36.0); Mean Corpuscular Volume 90.2 fL (80.0-100.0); Monocytes # (auto) 0.9 10 ^3/uL (0-1.3); Monocytes % (auto) 8.5 % (0.0-12.0); Neutrophils % (auto) 46.5 % (37.0-80.0); Nucleated Red Blood Cells % 0.1 %; Platelet Count (auto) 244 10^3/uL (140-450); Red Blood Cells 4.33 10^6/uL (4.5-5.90); White Blood Cell 10.8 10^3/uL (4.4-10.8)
[2024-07-11 07:00] LABS: Alanine Aminotransferase 12 U/L (7-40); Albumin 3.5 g/dL (3.2-4.8); Alkaline Phosphatase 67 U/L (46-116); Anion Gap 7 (5-15); BUN/Creatinine Ratio 16.3 (10.0-20.0); Blood Urea Nitrogen 15 mg/dL (9-23); Calcium 8.8 mg/dL (8.7-10.4); Carbon Dioxide 27 mmol/L (20-31); Chloride 106 mmol/L (98-107); Glucose 96 mg/dL (74-106); Potassium 4.2 mmol/L (3.5-5.1); Sodium 140 mmol/L (136-145); Total Protein 5.9 g/dL (5.7-8.2)
[2024-07-11 07:01] LABS: Bilirubin, Total 0.4 mg/dL (0.2-1.0)
[2024-07-11 07:13] LABS: Aspartate Aminotransferase 11 U/L (13-40)
[2024-07-11] MEDS ORDERED: METF-490 PO (14:26)
[2024-07-11] MEDS ORDERED: SITA100T34 PO (14:26)
[2024-07-11] MEDS ORDERED: GLUC-224 VI (14:26)
[2024-07-11] MEDS ORDERED: ATOR40TA52 PO (14:26)
[2024-07-11] MEDS ORDERED: INSUINJ37 SC (14:26)
[2024-07-11] MEDS ORDERED: BLOO-169 XX (14:26)
[2024-07-11] MEDS ORDERED: ISOP70MI2 EX (14:26)
--- NOTE | 2024-07-11 16:44 | DVHDSRES ---
Discharge Summary Date of Admission Resident Creating Document: FLAVIO ELIZABETH RESDIENT July 08, 2024 at 22:50 Date of Discharge: Jul 11, 2024 Admitting Diagnosis Diabetic foot Labs/Diagnostic Data: Laboratory Results Test 07/11/24 16:21 07/11/24 05:54 07/09/24 05:46 07/08/24 19:40 White Blood Count 10.8 10^3/uL (4.4-10.8) Red Blood Count 4.33 10^6/uL (4.5-5.90) Hemoglobin 13.6 g/dL (13.5-17.5) Hematocrit 39.0 % (41.0-53.0) Mean Corpuscular Volume 90.2 fL (80.0-100.0) Mean Corpuscular Hemoglobin 31.4 pg (28.0-32.0) Mean Corpuscular Hemoglobin Concent 34.8 g/dL (32.0-36.0) Red Cell Distribution Width 14.0 % (11.8-14.3) Platelet Count 244 10^3/uL (140-450) Mean Platelet Volume 7.9 fL (6.9-10.8) Neutrophils (%) (Auto) 46.5 % (37.0-80.0) Lymphocytes (%) (Auto) 41.3 % (10.0-50.0) Monocytes (%) (Auto) 8.5 % (0.0-12.0) Eosinophils (%) (Auto) 2.6 % (0.0-7.0) Basophils (%) (Auto) 1.1 % (0.0-2.0) Neutrophils # (Auto) 5.0 10 ^3/uL (1.6-8.6) Lymphocytes # (Auto) 4.4 10 ^3/uL (0.4-5.4) Monocytes # (Auto) 0.9 10 ^3/uL (0-1.3) Eosinophils # (Auto) 0.3 10 ^3/uL (0-0.8) Basophils # (Auto) 0.1 10 ^3/uL (0-0.2) Nucleated Red Blood Cells 0.1 % Sodium Level 140 mmol/L (136-145) Potassium Level 4.2 mmol/L (3.5-5.1) Chloride Level 106 mmol/L (98-107) Carbon Dioxide Level 27 mmol/L (20-31) Anion Gap 7 (5-15) Blood Urea Nitrogen 15 mg/dL (9-23) Creatinine 0.92 mg/dL (0.700-1.30) Glomerular Filtration Rate Calc 95 mL/min (>90) BUN/Creatinine Ratio 16.3 (10.0-20.0) Serum Glucose 96 mg/dL (74-106) Calcium Level 8.8 mg/dL (8.7-10.4) Total Bilirubin 0.4 mg/dL (0.2-1.0) Aspartate Amino Transferase (AST) 11 U/L (13-40) Alanine Aminotransferase (ALT) 12 U/L (7-40) Alkaline Phosphatase 67 U/L (46-116) Total Protein 5.9 g/dL (5.7-8.2) Albumin 3.5 g/dL (3.2-4.8) Hemoglobin A1c 13.8 % A1C (<5.7) Triglycerides Level 136 mg/dL (< 150) Cholesterol Level 217 mg/dL (< 200) LDL Cholesterol 168 mg/dL (< 100) HDL Cholesterol 34 mg/dL (40-59) Troponin I High Sensitivity 7 ng/L (</=54) Test 07/08/24 18:48 Lactic Acid Level 1.1 mmol/L (0.4-2.0) B-Type Natriuretic Peptide 142.32 pg/mL (0-100) Other Laboratory Tests 07/11/24 05:54 Brief Hx & Hospital Course: The patient is a 59-year-old male with past medical history of hypertension and diabetes mellitus who presented to [facility] ED with complaint of left foot pain. Patient reports [place] the [place] and was unable to feel the hot surface due to diabetic neuropathy, sustained wound on the bottom of his left foot. Patient was seen and evaluated in the ED, laboratory data shows WBC 9.7, platelets 250, sodium 139, potassium 4.7, BUN 22, creatinine 1.27, troponin 7, glucose 301, BNP 142.32, blood pressure 136/79, heart rate 65, temperature 97.7 F, O2 saturation 97% on room air. Patient was started on IV antibiotic regimen vancomycin, please see medication orders section in the computer. On my assessment, patient denied chest pain, no headache, no shortness a breath, no diaphoresis, no nausea, no vomiting, no fever, no chills. Patient was admitted for further evaluation and medical management. Hospital course: The patient was admitted on the line of diabetic foot and cellulitis. The patient was given empiric antibiotic of vancomycin. MRI was performed, showed no sign of osteomyelitis and abscess, subsequently antibiotic were changed to Augmentin.. Podiatry was consulted, recommended medical management the podiatry outpatient follow up. During hospital admission, the patient was found to have Hb A1c of 13.8, and the patient was given insulin Lantus, lispro bolus. During hospital admission, for pain control the patient was given [place], and the patient was also given aspirin, atorvastatin and vitamin supplement. On 07/11/2024 the patient was feeling better since admission. Discharge plan discussed with the patient the patient discharged home. Discharge plan: Follow up with the PCP within 1 week of the discharge. Follow up with the Podiatry on outpatient basis. Insulin Lantus 15 units daily Sitagliptin 100 mg daily Metformin 1 g daily Statin 40 mg daily Condition at Discharge: Good Final Diagnosis/Problems List Diabetic foot Cellulitis of lower limb next Uncontrolled diabetes mellitus with hyperglycemia Hypertension Diabetic neuropathy Dyslipidemia Ruled out osteomyelitis/abscess Obesity, grade 2 Non-pressure chronic ulcer of other part of left foot limited to breakdown of skin Ruled out upper respiratory infection Contusion of left foot Discharge Disposition: Home with Health Services Discharge Instruct/Medications Diet: Cardiac 2g Na,low cholest Activity: No Restrictions, As Tolerated Follow Up/Referral: Follow up with the PCP within 1 week of the discharge Follow up with the with Podiatry on outpatient basis. Follow up with the discharge Clinic within 1 week of the discharge Medications: Insulin Lantus 15 units evening time daily Metformin 1 g daily Sitagliptin 100 mg daily Atorvastatin 40 mg daily Discharge Statement: "Patient was advised to return to the ER or call 911 if any headaches, dizziness, shortness of breath, chest pain, abdominal pain, bleeding, fevers, or worsening of medical condition. Patient was counseled about treatment plan, medications, possible side effects, patientverbalized understanding. All questions were answered to the best of my ability. This discharge took greater then 30 minutes in planning, reviewing documentation, counseling the patient, and discussing with other team members." ASSESSMENT ASSESSMENT Assessment Diabetic foot Date of Service: Jul 11, 2024 Billing Provider: EMMANUEL FOOTE MD Common Visit Codes: 94193-TUZ/OBS DISCH DAY >30min FLAVIO ELIZABETH RESDIZAHRA Jul 11, 2024 16:44 EMMANUEL FOOTE MD Jul 12, 2024 11:15
== END 2024-07-11 18:15 | disposition home or self-care (01) | DRG 603 ==
LOC: ER 17:29 → OVERFLOW 22:50 → WEST WING 22:52
PROVIDERS: ADMIT Student in an Organized Health Care Education/Training Program; ATTEND Emergency Medicine
DX: L03.116 Cellulitis of left lower limb (principal); E11.40 Type 2 diabetes mellitus with diabetic neuropathy, unspecified; E11.621 Type 2 diabetes mellitus with foot ulcer; I10 Essential (primary) hypertension; E66.9 Obesity, unspecified; E11.610 Type 2 diabetes mellitus with diabetic neuropathic arthropathy; L97.521 Non-pressure chronic ulcer of other part of left foot limited to breakdown of skin; S90.32XA Contusion of left foot, initial encounter; X58.XXXA Exposure to other specified factors, initial encounter; Z79.899 Other long term (current) drug therapy; Z79.2 Long term (current) use of antibiotics; Z83.3 Family history of diabetes mellitus; Z68.32 Body mass index [BMI] 32.0-32.9, adult; Z79.84 Long term (current) use of oral hypoglycemic drugs; Y93.89 Activity, other specified; Y92.89 Other specified places as the place of occurrence of the external cause; Y99.8 Other external cause status
CPT/HCPCS: 36415; 71045; 73630; 73718; 80048; 80053; 80061; 82565; 82962; 83036; 83605; 83880; 84484; 85025; 87040; 93306; 96365; 99291; G0378; J1815